=== PATIENT | male | born 1945 | race Caucasian/White ===

== ENCOUNTER 2016-05-13 15:11 | Emergency (ER) | payer MEDICAID, MEDICARE, OTHER ==
[~2016-05-13] VITALS: Ht 170.2 cm; Wt 77.1 kg
[2016-05-13 15:38] VITALS: BP 133/86
== END 2016-05-13 17:32 | disposition left against medical advice (07) ==
LOC: EDBD 15:11 → ER 15:18
DX: M79.602 Pain in left arm (principal); Z53.21 Procedure and treatment not carried out due to patient leaving prior to being seen by health care provider; W18.39XA Other fall on same level, initial encounter; Y93.89 Activity, other specified; Y92.89 Other specified places as the place of occurrence of the external cause; Y99.8 Other external cause status

== ENCOUNTER 2016-05-15 20:29 | Emergency (ER) | payer MEDICARE ==
[~2016-05-15] VITALS: Ht 175.3 cm; Wt 77.1 kg
[2016-05-15 20:32] VITALS: BP 127/82
[2016-05-15] MEDS ORDERED: cefTRIAXone SOD 1,000 MG VL IM ONE (23:00)
[2016-05-15] MEDS ORDERED: IBUPROFEN 600 MG TAB PO ONE (23:00)
== END 2016-05-15 23:19 | disposition home or self-care (01) ==
LOC: EDBD 20:29 → ER 20:32
DX: R51 Headache (principal); L03.116 Cellulitis of left lower limb; F17.210 Nicotine dependence, cigarettes, uncomplicated; F12.10 Cannabis abuse, uncomplicated; F15.10 Other stimulant abuse, uncomplicated; W10.8XXA Fall (on) (from) other stairs and steps, initial encounter; Y93.89 Activity, other specified; Y99.8 Other external cause status; Y92.238 Other place in hospital as the place of occurrence of the external cause; M19.90 Unspecified osteoarthritis, unspecified site
CPT/HCPCS: 70450; 96372; 99284; J0696

== ENCOUNTER 2016-05-27 16:17 | Emergency (ER) | payer MEDICARE ==
[~2016-05-27] VITALS: Ht 175.3 cm; Wt 52.2 kg
[2016-05-28 12:52] VITALS: BP 118/75
== END 2016-05-28 15:55 | disposition home or self-care (01) ==
LOC: ER 16:17 → EDBD 16:17 → ER 05-28 15:09
DX: S52.002A Unspecified fracture of upper end of left ulna, initial encounter for closed fracture (principal); Z59.0 Homelessness; F17.210 Nicotine dependence, cigarettes, uncomplicated; F12.10 Cannabis abuse, uncomplicated; R51 Headache; F15.10 Other stimulant abuse, uncomplicated; W10.9XXA Fall (on) (from) unspecified stairs and steps, initial encounter; Y93.89 Activity, other specified; Y99.8 Other external cause status; Y92.89 Other specified places as the place of occurrence of the external cause
CPT/HCPCS: 70450; 73080

== ENCOUNTER 2016-08-05 10:32 | Observation (INO) | payer MEDICARE ==
[~2016-08-05] VITALS: Ht 170.2 cm; Wt 72.6 kg
[2016-08-05] MEDS ORDERED: SODIUM CHLORIDE 0.9% 500 ML IVB ONE (10:48)
[2016-08-05 11:13] LABS: Basophils # (auto) 0 uL; Basophils % (auto) 0.7 % (0.0-2.0); DEFINITIVE VIEW TRANSMISSION; Eosinophils # (auto) 0.1 uL; Eosinophils % (auto) 3.1 % (0.0-7.0); Hematocrit 39.1 % (41.0-53.0); Hemoglobin 12.8 g/dL (13.5-17.5); Lymphocytes # (auto) 0.5 uL; Lymphocytes % (auto) 19.7 % (10.0-50.0); Mean Corpuscular Hemoglobin 24.2 pg (28.0-32.0); Mean Corpuscular Hgb Conc. 32.6 g/dL (32.0-36.0); Mean Corpuscular Volume 74.2 fL (80.0-100.0); Mean Platelet Volume 6.4 fL (7.4-10.4); Monocytes # (auto) 0.3 uL; Monocytes % (auto) 9.7 % (0.0-12.0); Neutrophils # (auto) 1.9 uL; Neutrophils % (auto) 66.8 % (37.0-80.0); Platelet Count (auto) 209 10^3/uL (140-450); Red Cell Distribution Width 18.5 % (11.6-16.0); White Blood Cell 2.8 10^3/uL (4.4-10.8)
[2016-08-05 12:01] LABS: Albumin 3.7 g/dL (3.4-5.0); Alkaline Phosphatase 82 U/L (45-117); Anion Gap 11 (5-15); Aspartate Aminotransferase 109 U/L (15-37); BUN/Creatinine Ratio 9.6; Bilirubin, Total 0.8 mg/dL (0.2-1.0); Blood Urea Nitrogen 7 mg/dL (7-18); Calcium 7.9 mg/dL (8.5-10.1); Carbon Dioxide 22 mmol/L (21-32); Chloride 101 mmol/L (98-107); GFR African American 137 mL/min; GFR Non-African American 113 mL/min; Glucose 89 mg/dL (74-106); Magnesium 2.4 mg/dL (1.6-2.6); Potassium 3.8 mmol/L (3.5-5.1); Sodium 134 mmol/L (136-145); Total Protein 8.4 g/dL (6.4-8.2)
[2016-08-05 12:17] LABS: Urine RBC None Seen /hpf (0 - 3)
[2016-08-05 12:28] VITALS: BP 129/75
[2016-08-05 12:31] LABS: Urine Bilirubin Negative (Negative); Urine Blood Negative /uL (Negative); Urine Color Yellow (Yellow); Urine Glucose Normal (Normal); Urine Ketone Negative (Negative); Urine Nitrite Negative (Negative); Urine Squamous Epithelial Cell FEW /hpf (<5); Urine Urobilinogen Normal (Negative)
== END 2016-08-05 15:18 | disposition home or self-care (01) | DRG 897 ==
LOC: EDBD 10:32 → ER 10:32 → OVERFLOW 12:06 → ER 15:18
PROVIDERS: ADMIT Emergency Medicine; ATTEND Emergency Medicine
DX: F10.120 Alcohol abuse with intoxication, uncomplicated (principal); F17.210 Nicotine dependence, cigarettes, uncomplicated; M19.90 Unspecified osteoarthritis, unspecified site; E83.51 Hypocalcemia
CPT/HCPCS: 36415; 70450; 80053; 80320; 81001; 83735; 84484; 85025; 99285; G0378; J7030

== ENCOUNTER 2016-08-12 12:15 | Emergency (ER) | payer MEDICARE ==
[~2016-08-12] VITALS: Ht 170.2 cm; Wt 54.4 kg
[2016-08-12 12:41] VITALS: BP 126/76
== END 2016-08-12 15:47 | disposition left against medical advice (07) ==
LOC: ER 12:17
DX: R52 Pain, unspecified (principal); Z53.21 Procedure and treatment not carried out due to patient leaving prior to being seen by health care provider